=== PATIENT | male | born 1955 | race Caucasian/White ===

== ENCOUNTER → 2016-06-09 | Outpatient (CLI) | payer OTHER ==
--- NOTE | 2016-06-10 10:00 | MR ---
MRI right wrist. HISTORY: Wrist pain. Injury lifting bag January with continued pain. Evaluate for TFCC tear. ICD 10 code S63.591. TECHNIQUE: MRI is performed of the right wrist using a 3 Ker[employer] MRI system. Sagittal, coronal, and axi al imaging was obtained with standard imaging sequences. FINDINGS: Moderate degenerative change is seen at the first carpometacarpal joint. There is joint aníbal rowing and cartilage loss and joint effusion with mild periarticular spurring. Subcortical bone marro w edema is seen in the trapezium and base of the first metacarpal with subcortical cystic change. A l obulated fluid collection is seen between the base of the second and third metacarpals likely represe nting a ganglion measuring 13 x 6 mm. No evidence for occult fracture. Mild attenuation is seen at the scapholunate ligament at the scaphoid insertion. Lunotriquetral ligam ent is poorly visualized. Attenuation is seen centrally at the junction of the articular disk and rad ial attachment of the triangular fibrocartilage complex. Abnormal signal intensity is seen in the art icular disk on the ulnar sided surface. There is mild irregularity at the periphery of the triangular fibrocartilage complex. No significant joint effusion of the distal radioulnar joint. There is abnor mal signal intensity and attenuation extensor carpi ulnaris tendon at the level of the ulnar styloid. The other visualized tendons are unremarkable. IMPRESSION: 1. Complex tear of the triangular fibrocartilage complex. This includes a full-thickness perforation of the junction centrally at the articular disk and radial attachment and partial tear at the articul ar disk and periphery. 2. Partial tear scapholunate ligament at the scaphoid insertion. Also degeneration or tear of the jesenia atotriquetral ligament. 3. Tendinopathy and partial tear extensor carpi ulnaris tendon at the level of the ulnar styloid. 4. Moderate degenerative change first carpometacarpal joint. 5. Probable ganglion between the base of the second and third metacarpal.
== END ==
LOC: FIMAGING 13:47
PROVIDERS: ATTEND Physician Assistant Medical
DX: S63.591A Other specified sprain of right wrist, initial encounter (principal); S63.511A Sprain of carpal joint of right wrist, initial encounter; M65.841 Other synovitis and tenosynovitis, right hand; X50.0XXA Overexertion from strenuous movement or load, initial encounter; R93.8 Abnormal findings on diagnostic imaging of other specified body structures